=== PATIENT | female | born 1970 | race Caucasian/White ===

== ENCOUNTER 2019-08-10 10:50 | Emergency (ER) | payer MEDICAID ==
[~2019-08-10] VITALS: Ht 160 cm; Wt 43.0 kg
[2019-08-10 10:56] VITALS: BP 100/70
[2019-08-10] MEDS ORDERED: DIPH25CA83 PO (12:10)
== END 2019-08-10 12:27 | disposition home or self-care (01) ==
LOC: ER 10:50
DX: S00.262A Insect bite (nonvenomous) of left eyelid and periocular area, initial encounter (principal); H02.844 Edema of left upper eyelid; Z79.899 Other long term (current) drug therapy; W57.XXXA Bitten or stung by nonvenomous insect and other nonvenomous arthropods, initial encounter; Y93.89 Activity, other specified; Y92.89 Other specified places as the place of occurrence of the external cause; Y99.8 Other external cause status
CPT/HCPCS: 99282; 99283